=== PATIENT | female | born 1940 | race Caucasian/White ===

== ENCOUNTER 2016-12-07 17:38 | Inpatient (IN) | payer OTHER ==
[~2016-12-07] VITALS: Ht 152.4 cm; Wt 73.9 kg
[~2016-12-07 17:38] MED LIST: ALLEGRA180 MG; ALLEGRA180 MG PO; Asacol PO; Ascorbic Acid,Ester- PO; Aspirin PO; BENTYL10 MG PO; Bactrim,Septra DS 80 PO; CONSTULOSE10 GM/15 M PO; Chronulac,Cephulac PO; ECOTRIN325 MG PO; HYDROCHLOROTHIA25 MG PO; Hydrodiuril,Oretic,E PO; IRON PO; IRON325 M1 PO; LACTULOSE10 GM/151; Lactulose PO; METAMUCIL PACKE1 PKT PO; MIRALAX17 GM PO; MOTRIN800 MG PO; MULTIVITAMIN1 EAC2 PO; Miralax, Glycolax PO; Motrin PO; PRILOSEC20 MG; PRILOSEC20 MG PO; Percocet 5/325,Endoc PO; TYLENOL W/COD1 COMB1 PO; Theragran PO; Tylenol/Codeine #3 PO; VITAMIN D5000 INTUN PO; Vicodin,Norco 5/325 PO; Vitamin D PO
[2016-12-07 18:34] LABS: HEMATOCRIT 42.6 % (36.0-46.0); MCH 30.2 PG (29.0-34.0); MCHC 33.6 G/DL (30.0-36.0); MCV 89.9 FL (83-99); PLATELET COUNT 262 K/uL (156-360); RBC DIS.WIDTH-CV 13.4 % (11.8-14.6); RBC DIS.WIDTH-SD 44.3 % (39-53); RED BLOOD COUNT 4.74 M/uL (3.80-5.20); WHITE BLOOD COUNT 4.4 K/uL (4.1-10.2)
[2016-12-07 18:43] LABS: CHLORIDE 103 mEq/L (99-109); POTASSIUM 4.2 mEq/L (3.7-5.4); SODIUM 138 mEq/L (136-147)
[2016-12-07 18:45] LABS: GLUCOSE 106 mg/dL (70-99)
[2016-12-07 18:46] LABS: ANION GAP 11 MEQ/L (2-14)
[2016-12-07 18:47] LABS: TOTAL BILIRUBIN 0.7 mg/dL (0.0-1.0)
[2016-12-07 18:48] LABS: ALKALINE PHOSPHATASE 68 IU/L (3-129)
[2016-12-07 18:49] LABS: GFR ESTIMATE (CALCULATED) > 59 mL/min/
[2016-12-07 18:50] LABS: UREA NITROGEN (BUN) 15 mg/dL (9-23)
[2016-12-07 19:51] LABS: ADD MIUA? NO; BILIRUBIN NEGATIVE; BLOOD NEGATIVE; COLOR YELLOW ((YELLOW)); GLUCOSE (STRIP) NEGATIVE; KETONES 5; LEUKOCYTES NEGATIVE; NITRITE NEGATIVE; PROTEIN (STRIP) NEGATIVE; SPECIFIC GRAVITY 1.012 (1.000-1.030); UCUL ADDED? NO; UROBILINOGEN 0.2 MG/DL (0.2-1.0)
[2016-12-07] MEDS ORDERED: EYE DROP15 ML BOTH EYES (23:04)
[2016-12-07] MEDS ORDERED: PRESERVISION A1 EAC2 PO (23:04)
[2016-12-07] MEDS ORDERED: BLOOD PRESSURE MED PO (23:05)
[2016-12-08 06:53] VITALS: BP 172/84
[2016-12-08 07:00] VITALS: BP 170/73
[2016-12-08 11:35] VITALS: BP 174/79
[2016-12-08 15:32] VITALS: BP 183/84
[2016-12-08 20:09] VITALS: BP 189/83
[2016-12-08 23:53] VITALS: BP 176/77
[2016-12-09 03:45] VITALS: BP 172/77
[2016-12-09 06:14] VITALS: BP 164/74
[2016-12-09 08:07] LABS: HEMATOCRIT 34.3 % (36.0-46.0); MCH 30.4 PG (29.0-34.0); MCHC 34.4 G/DL (30.0-36.0); MCV 88.4 FL (83-99); MEAN PLAT.VOLUME 10.6 uM^3 (9.5-12.4); PLATELET COUNT 232 K/uL (156-360); RBC DIS.WIDTH-CV 13.4 % (11.8-14.6); RBC DIS.WIDTH-SD 43.4 % (39-53); RED BLOOD COUNT 3.88 M/uL (3.80-5.20)
[2016-12-09 08:14] LABS: WHITE BLOOD COUNT 7.2 K/uL (4.1-10.2)
[2016-12-09 08:22] LABS: CHLORIDE 106 mEq/L (99-109); SODIUM 140 mEq/L (136-147)
[2016-12-09 08:24] LABS: GLUCOSE 114 mg/dL (70-99)
[2016-12-09 08:26] LABS: ANION GAP 11 MEQ/L (2-14)
[2016-12-09 08:28] LABS: GFR ESTIMATE (CALCULATED) > 59 mL/min/
[2016-12-09 08:29] LABS: POTASSIUM 3.1 mEq/L (3.7-5.4); UREA NITROGEN (BUN) 9 mg/dL (9-23)
[2016-12-09 08:52] VITALS: BP 157/71
[2016-12-09 16:48] VITALS: BP 192/86
[2016-12-09 18:12] VITALS: BP 162/70
[2016-12-09 21:08] VITALS: BP 170/72
[2016-12-10] VITALS (8 sets, daily range): BP systolic 129–190; BP diastolic 60–86
[2016-12-10 08:26] LABS: HEMATOCRIT 34.3 % (36.0-46.0); MCH 30.5 PG (29.0-34.0); MCHC 34.1 G/DL (30.0-36.0); MCV 89.6 FL (83-99); MEAN PLAT.VOLUME 10.9 uM^3 (9.5-12.4); PLATELET COUNT 227 K/uL (156-360); RBC DIS.WIDTH-CV 13.8 % (11.8-14.6); RBC DIS.WIDTH-SD 45.1 % (39-53); RED BLOOD COUNT 3.83 M/uL (3.80-5.20); WHITE BLOOD COUNT 6.6 K/uL (4.1-10.2)
[2016-12-10 08:55] LABS: ANION GAP 9 MEQ/L (2-14); CHLORIDE 109 MEQ/L (99-109); GFR ESTIMATE (CALCULATED) > 59 mL/min/; GLUCOSE 112 mg/dL (70-99); POTASSIUM 3.6 MEQ/L (3.7-5.4); SAMPLE HEMOLYSIS CHECK 0; SAMPLE ICTERIC CHECK 0; SAMPLE LIPEMIA CHECK 0; SODIUM 144 MEQ/L (136-147); UREA NITROGEN (BUN) 8 mg/dL (9-23)
[2016-12-11 03:49] VITALS: BP 160/78
[2016-12-11 07:57] LABS: HEMATOCRIT 34.6 % (36.0-46.0); MCH 30.8 PG (29.0-34.0); MCHC 33.5 G/DL (30.0-36.0); MCV 91.8 FL (83-99); MEAN PLAT.VOLUME 10.5 uM^3 (9.5-12.4); PLATELET COUNT 197 K/uL (156-360); RBC DIS.WIDTH-CV 13.8 % (11.8-14.6); RBC DIS.WIDTH-SD 46.2 % (39-53); RED BLOOD COUNT 3.77 M/uL (3.80-5.20)
[2016-12-11 07:58] LABS: WHITE BLOOD COUNT 4.4 K/uL (4.1-10.2)
[2016-12-11 08:12] VITALS: BP 142/62
[2016-12-11 08:38] LABS: ANION GAP 6 MEQ/L (2-14); CHLORIDE 108 MEQ/L (99-109); GFR ESTIMATE (CALCULATED) > 59 mL/min/; GLUCOSE 100 mg/dL (70-99); POTASSIUM 3.8 MEQ/L (3.7-5.4); SAMPLE HEMOLYSIS CHECK 0; SAMPLE ICTERIC CHECK 0; SAMPLE LIPEMIA CHECK 0; SODIUM 141 MEQ/L (136-147); UREA NITROGEN (BUN) 9 mg/dL (9-23)
[2016-12-11 11:45] VITALS: BP 174/82
[2016-12-11 16:55] VITALS: BP 122/66
[2016-12-11 19:24] VITALS: BP 169/70
[2016-12-11 23:26] VITALS: BP 188/80
[2016-12-12 03:28] VITALS: BP 161/70
[2016-12-12 06:46] LABS: HEMATOCRIT 36.5 % (36.0-46.0); MCHC 33.2 G/DL (30.0-36.0); MCV 90.6 FL (83-99); MEAN PLAT.VOLUME 10.3 uM^3 (9.5-12.4); PLATELET COUNT 216 K/uL (156-360); RBC DIS.WIDTH-CV 13.6 % (11.8-14.6); RBC DIS.WIDTH-SD 45.2 % (39-53); RED BLOOD COUNT 4.03 M/uL (3.80-5.20)
[2016-12-12 07:14] LABS: ANION GAP 8 MEQ/L (2-14); CHLORIDE 108 MEQ/L (99-109); GFR ESTIMATE (CALCULATED) > 59 mL/min/; GLUCOSE 90 mg/dL (70-99); POTASSIUM 3.9 MEQ/L (3.7-5.4); SAMPLE HEMOLYSIS CHECK 0; SAMPLE ICTERIC CHECK 0; SAMPLE LIPEMIA CHECK 0; SODIUM 142 MEQ/L (136-147); UREA NITROGEN (BUN) 10 mg/dL (9-23)
[2016-12-12 07:41] VITALS: BP 190/84
[2016-12-12 11:07] VITALS: BP 140/64
[2016-12-12 15:10] VITALS: BP 172/78
[2016-12-12 20:13] VITALS: BP 176/82
[2016-12-12 23:31] VITALS: BP 165/76
[2016-12-13 03:59] VITALS: BP 178/76
[2016-12-13 07:00] VITALS: BP 164/80
[2016-12-13 12:00] VITALS: BP 156/67
[2016-12-13] MEDS ORDERED: NORCO 5/3251 TABLET PO (16:20)
[2016-12-13] MEDS ORDERED: COLACE100 MG PO (16:23)
== END 2016-12-13 18:14 | disposition home or self-care (01) | DRG 354 ==
LOC: EME 17:38 → RME 17:38 → SDC 12-08 00:50 → RME 12-08 00:50 → 2EAST 12-08 03:29 → 2SOUTH 12-08 03:29 → 2EAST 12-08 06:21
PROVIDERS: Physician Assistant; Thoracic Surgery (Cardiothoracic Vascular Surgery)
PROC: 0WQF0ZZ Repair Abdominal Wall, Open Approach (ICD-10-PCS; principal; 2016-12-08)
DX: K43.0 Incisional hernia with obstruction, without gangrene (principal); K66.0 Peritoneal adhesions (postprocedural) (postinfection); I48.2 Chronic atrial fibrillation; K21.9 Gastro-esophageal reflux disease without esophagitis; J45.909 Unspecified asthma, uncomplicated; I10 Essential (primary) hypertension; K50.90 Crohn's disease, unspecified, without complications; K90.49 Malabsorption due to intolerance, not elsewhere classified; Z60.2 Problems related to living alone; Z88.5 Allergy status to narcotic agent
CPT/HCPCS: 71020; 74177; 80048; 80053; 81003; 83605; 85027; 86900; 86901; 93005; 97530 GP; 99281; 99285; J0131; J0330; J0360; J0696; J1100; J1644; J1885; J2270; J2405; J2710; J3010; J7030; J7050; J7120; S0028

== ENCOUNTER 2017-04-29 12:36 | Day surgery (SDC) | payer OTHER ==
[~2017-04-29] VITALS: Ht 149.9 cm; Wt 69.9 kg
[~2017-04-29 12:36] MED LIST changes: +BLOOD PRESSURE MED PO; +COLACE100 MG PO; +EYE DROP15 ML BOTH EYES; +NORCO 5/3251 TABLET PO; +PRESERVISION A1 EAC2 PO; +PRESERVISION T1 EACH PO
[2017-04-29 13:09] VITALS: BP 143/84
[2017-04-29 17:15] VITALS: BP 197/81
[2017-04-29 17:45] VITALS: BP 176/75
== END 2017-04-29 17:45 | disposition home or self-care (01) ==
LOC: SDC 12:36
PROC: 0WJF0ZZ Inspection of Abdominal Wall, Open Approach (ICD-10-PCS; principal; 2017-04-29)
DX: T81.83XA Persistent postprocedural fistula, initial encounter (principal); I48.91 Unspecified atrial fibrillation; K50.90 Crohn's disease, unspecified, without complications; D64.9 Anemia, unspecified; K21.9 Gastro-esophageal reflux disease without esophagitis; J45.909 Unspecified asthma, uncomplicated; I10 Essential (primary) hypertension; Z87.19 Personal history of other diseases of the digestive system; Z90.710 Acquired absence of both cervix and uterus; Z90.49 Acquired absence of other specified parts of digestive tract
CPT/HCPCS: J0690; J2250; J3010